=== PATIENT | male | born 1935 | race Caucasian/White ===

== ENCOUNTER 2021-12-26 19:24 | Inpatient (IN) | payer MEDICARE ==
[~2021-12-26] VITALS: Ht 172.7 cm; Wt 77.1 kg
--- NOTE | ~2021-12-26 | CON ---
[address] [address] CONSULTATION Name: YADY SUTHERLAND Room: [address] ADM IN M.R.#: [id number] Admission: 12/26/21 Attend Phys: Nicola Hill MD Discharge: Date of : 37 Report #: [id number] THIS REPORT FOR: cc: Dre Alegria Jesse J DO Khosla, Parveen K. MD ~ DATE OF CONSULTATION: 12/27/2021 HISTORY OF PRESENT ILLNESS: This is an 86-year-old male patient who was evaluated by me for the possibility of CVA. I reviewed this patient's record and talked to the patient's and patient himself. I also talked with Dr. Hill who is a hospitalist going to see this patient today. As I understand, this patient had a stroke in the past. That affected his speech as well as he had right-sided weakness. This weakness suddenly became worse yesterday. If I understand correctly from the patient, it came in suddenly. I reviewed the Emergency Room note, looks like the weakness was a slight that time, but to me the patient's weakness looked pretty significant, especially in the right upper extremity. This patient also has back pain, which is longstanding and he needs something to be done about it. Review of systems indicate a prior stroke, which left him with some weakness on the right side, but this one is definitely worse according to the patient. I reviewed other people's note and looks like this patient came to Emergency Room yesterday and a routine neurology consultation was today and the patient was seen today. He does not know why he had a stroke in the past, but he did say that he had a stent put in on the left carotid artery. So I assume that he had a significant stenosis at that time. He cannot tell me why the stent was put in and not the endarterectomy. He had a history of neck problem, back problem, hypoglycemia, hypertension. He used to be on aspirin and he tells me that he was told to stop aspirin. He has a list of multiple physicians. I do not know who asked him to stop the aspirin and why. It does not look like he was having any side effects. This was his relevant 14-point review of systems. PAST MEDICAL HISTORY: Positive for what looks like a stroke affecting his speech about 1 year ago when he was in [place]. FAMILY HISTORY: Negative for early age stroke. SOCIAL HISTORY: Smokes on special occasions. PHYSICAL EXAMINATION: The patient's examination indicate that the patient is alert and responsive. His speech looks okay to me. His memory is somewhat diminished, but I think that maybe his baseline. He does not appear to have any significant facial weakness, but he has a pretty profound weakness on the right upper extremity. I estimate his strength to be about 2/5. He does better with the right leg, but he has been limping on that. His right leg has a strength of [facility] [address] [place] [address] CONSULTATION Name: YADY SUTHERLAND Room: [address] IN .R.#: [id number] Admission: 12/26/21 Attend Phys: Nicola Hill MD Discharge: Date of : 37 Report #: [id number] about 3/5. He did reasonably well with position sense and other sensation on both sides. His reflexes appear to be diminished in generalized fashion. I could not look at the patient. The patient is a well-built individual. He does not have any dysmorphic features of eyes, ears and face. His blood pressure is 151/73, respirations 20, pulse is 76, temperature is 97.6. LABORATORY DATA: White count is 6.6. IMAGING: He had a CT scan of the head, CT scan of the C-spine and lumbar spine x-ray. He does have a stroke on the left side, but that can be old. IMPRESSION AND PLAN: The patient appeared to have a stroke on the left side, but his deficit appeared to be worse. I ordered an urgent MRI hoping that they will do it pretty fast, but they have not done it and I asked them to get it done as soon as possible, and if there is a need for make it make it stat. His symptoms started sometime yesterday evening. Therefore, he is way outside the window for any TPA. He does not have any carotid stenosis on ultrasound, which I got it done, but they have not done an MRI to see if there is any large vessel occlusion there, but even if it is, he is probably outside the window for that now, but I would like to get it done and I have called the nursing staff to get it done as soon as possible and call me with that. He is not on aspirin, for some reason he was taken out. I am going to give him a loading dose of Plavix as well as aspirin and then monitor him closely and check his MRI once it is available. More than 50 minutes of time was spent taking care of this patient today and majority was spent counseling and coordinating his care. Thank you very much for this referral. By: [id number] Mejia MD /nt
[2021-12-26 19:31] VITALS: BP 172/84
[2021-12-26 20:31] LABS: CALCIUM 9.2 mg/dL (8.5-10.1); CREATININE 1.1 mg/dL (0.6-1.3); POTASSIUM 3.9 mmol/L (3.5-5.1)
[2021-12-26 20:32] LABS: ABSOLUTE EOSINOPHILS 0.1 thou/uL (0.0-0.7); ABSOLUTE LYMPHOCYTES 1.5 thou/uL (0.8-5.3); ABSOLUTE MONOCYTES 0.6 thou/uL (0.0-1.2); ABSOLUTE NEUTROPHILS 4.4 thou/uL (1.6-8.1); BASOPHILS 0.7 %; EOSINOPHILS 1.9 %; HEMATOCRIT 45.6 % (42.0-52.0); HEMOGLOBIN 15.3 gm/dL (14.0-18.0); LYMPHOCYTES 22.3 %; MCH 34.2 pg (26.0-34.0); MCHC 33.5 g/dL (28.0-37.0); MCV 102.1 fL (80.0-100.0); MONOCYTES 8.9 %; MPV 6.7 fl. (7.2-11.1); NUCLEATED RBCS 0 /100WBC; PLATELET COUNT* 350 thou/uL (150-400); POLYS 66.2 %; RBC 4.47 mil/uL (4.50-6.00); WBC 6.6 thou/uL (4.0-11.0)
[2021-12-26 20:36] LABS: ALBUMIN 3.7 g/dL (3.4-5.0); TOTAL BILIRUBIN 0.3 mg/dL (<0.1-1.0); TOTAL PROTEIN 8.3 g/dL (6.4-8.2)
[2021-12-26 20:40] LABS: APTT 27.6 Seconds (25.0-31.3); PROTIME 10.6 Seconds (9.20-11.50)
[2021-12-26 21:35] LABS: URINE BILIRUBIN NEGATIVE (Negative); URINE BLOOD NEGATIVE (Negative); URINE CLARITY CLEAR; URINE COLOR YELLOW; URINE GLUCOSE-RANDOM NEGATIVE (Negative); URINE KETONES NEGATIVE (Negative); URINE LEUKOCYTES-REFLEX NEGATIVE (Negative); URINE NITRITE-REFLEX NEGATIVE (Negative); URINE PROTEIN NEGATIVE (Negative); URINE UROBILINOGEN 0.2 E.U./dl (0.2-1.0)
[2021-12-26 23:10] VITALS: BP 132/87
[2021-12-26 23:50] VITALS: BP 167/93
[2021-12-27 04:00] VITALS: BP 144/77
[2021-12-27 08:00] VITALS: BP 159/80
[2021-12-27] MEDS ORDERED: DEPO-TESTO200 MG/1 M IM (10:05)
[2021-12-27] MEDS ORDERED: CRESTOR40 MG PO (10:06)
[2021-12-27] MEDS ORDERED: VIAGRA25 MG PO (10:06)
[2021-12-27] MEDS ORDERED: COZAAR 25 MG TA25 M1 PO (10:07)
[2021-12-27] MEDS ORDERED: LEVOTHYROXINE88 MC1 PO (10:07)
--- NOTE | 2021-12-27 10:57 | EKG ---
[place] [address] ELECTROCARDIOGRAM REPORT Name: YADY SUTHERLAND Room: [address] M.R.#: [id number] Admission: 12/26/21 Attend Phys: Nicola Hill, Discharge: Date of : 37 Date of Service: 12/26/211926 Report #: [id number] THIS REPORT FOR: //name// [facility] ED Test Date: 2021-12-26 Test Time: 19:27:15 Pat Name: YADY SUTHERLAND Department: Room: [facility] Gender: M Medicaid Nurse: KELVIN : 1935 Requested By: Mariam Frye Order Number: [id number] MD: Sarmad Rea Measurements Intervals Lena Rate: 87 P: 34 NC: 183 QRS: -23 QRSD: 102 T: 45 QT: 372 QTc: 448 Interpretive Statements Sinus rhythm Atrial premature complex Probable left atrial enlargement Abnormal R-wave progression, early transition Left ventricular hypertrophy Baseline wander in lead(s) I,III,aVL,aVF,V2 No previous ECG available for comparison Electronically Signed On 12-27-2021 10:57:37 MANAGER FIELD by Sarmad Rea [email or web address] <ELECTRONICALLY SIGNED> By: Sarmad Rea MD, FAC 12/27/21 1057 26 26 Sarmad Rea MD, [facility] /EPI
[2021-12-27 14:20] VITALS: BP 151/73
--- NOTE | 2021-12-27 17:06 | 2DMMODE ---
[place] [address] 2 D/M-MODE ECHOCARDIOGRAM Name: YADY SUTHERLAND Room: [address] IN .R.#: [id number] Admission: 12/26/21 Attend Phys: Nicola Hill, Discharge: Date of : 37 Date of Service: 12/27/21 1706 Report #: [id number] THIS REPORT FOR: cc: Dre Alegria Jesse J DO Liston, Michael J. MD [facility] ~ APPROVED REPORT Study performed: 12/27/2021 15:35:56 EXAM: Comprehensive 2D, Doppler, and color-flow Echocardiogram Patient Location: In-Patient Room #: [facility] Status: routine BSA: 1.90 HR: 75 bpm BP: 159/80 mmHg Rhythm: NSR Other Information Technically limited study due to poor endocardial definition, inability to position patient. Indications CVA/TIA Echo Enhancing Agent Indication: Endocardial border delineation, RULE OUT SHUNT Agent(s) / Amount(s) Used: Optison 3 cc Agitated Saline 10 cc 2D Dimensions IVSd: 12.26 (7-11mm) LVOT Diam: 19.81 (18-24mm) LVDd: 40.18 mm PWd: 12.34 (7-11mm) Ascending Ao: 31.82 (22-36mm) LVDs: 29.47 (25-40mm) Aortic Root: 32.08 mm Volumes Left Atrial Volume (Systole) LA ESV Index: 30.30 mL/m2 Aortic Valve AoV Peak Eric.: 1.52 m/s [address] [address] 2 D/M-MODE ECHOCARDIOGRAM Name: YADY SUTHERLAND Room: [address] IN [facility].#: [id number] Admission: 12/26/21 Attend Phys: Nicola Hill, Discharge: Date of : 37 Date of Service: 12/27/21 1706 Report #: [id number] Peak Gr.: 9.19 mmHg LVOT Max P.61 mmHg AO Mean Gr.: 4.83 mmHg LVOT Mean P.69 mmHg LVOT Max V: 1.55 m/s AO V2 VTI: 29.28 cm LVOT Mean V: 0.99 m/s DINESH (VTI): 3.39 cm2 LVOT V1 VTI: 32.18 cm Mitral Valve MV Mean Gr.: 4.10 mmHg E/A Ratio: 0.65 MV Decel. Time: 283.55 ms MV E Max Eric.: 0.91 m/s MV PHT: 82.23 ms MVA (PHT): 2.68 cm2 TDI E/Lateral E': 15.17 E/Medial E': 15.17 Medial E' Eric.: 0.06 m/s Lateral E' Eric.: 0.06 m/s Left Ventricle The left ventricle is normal size. There is normal LV segmental wall motion. Mild concentric left ventricular hypertrophy. Left ventricular systolic function is normal. LVEF is 65-70%. Grade I - abnormal relaxation pattern. Right Ventricle The right ventricle is normal size. The right ventricular systolic function is normal. Atria Left atrium is mildly dilated. Bubble study technically limited due to suboptimal visualization. No obvious shunt noted. The right atrium size is normal. Aortic Valve Mild aortic valve sclerosis. No aortic regurgitation is present. There is no aortic valvular stenosis. Mitral Valve There is mitral annular calcification. There is no mitral valve regurgitation noted. No evidence of mitral valve stenosis. Tricuspid Valve The tricuspid valve is normal in structure. There is no tricuspid valve regurgitation noted[place] [address] 2 D/M-MODE ECHOCARDIOGRAM Name: YADY SUTHERLAND Room: [address] IN [facility]#: [id number] Admission: 12/26/21 Attend Phys: Nicola Hill, Discharge: Date of : 37 Date of Service: 12/27/21 1706 Report #: [id number] The pulmonary valve is normal in structure. There is no pulmonic valvular regurgitation. Great Vessels The aortic root is normal in size. IVC is normal in size and collapses >50% with inspiration. Pericardium There is no pericardial effusion. <Conclusion> The left ventricle is normal size. Mild concentric left ventricular hypertrophy. Left ventricular systolic function is normal. LVEF is 65-70%. Grade I - abnormal relaxation pattern. Left atrium is mildly dilated. Mild aortic valve sclerosis. There is mitral annular calcification. IVC is normal in size and collapses >50% with inspiration. Bubble study technically limited due to suboptimal visualization. No obvious shunt noted. Consider KENYA if clinically indicated. <ELECTRONICALLY SIGNED> By: Chirag Cheng MD, FACC 12/27/211705 05 05 Chirag Cheng MD, FACC /INF
[2021-12-27 19:29] VITALS: BP 127/67
[2021-12-27 20:20] VITALS: BP 141/74
[2021-12-28] VITALS (8 sets, daily range): BP systolic 102–161; BP diastolic 49–83
[2021-12-28 04:57] LABS: CALCIUM 8.1 mg/dL (8.5-10.1)
[2021-12-28 06:56] LABS: ABSOLUTE EOSINOPHILS 0.2 thou/uL (0.0-0.7); ABSOLUTE MONOCYTES 0.5 thou/uL (0.0-1.2); ABSOLUTE NEUTROPHILS 3.9 thou/uL (1.6-8.1); BASOPHILS 0.6 %; EOSINOPHILS 2.8 %; HEMATOCRIT 41.1 % (42.0-52.0); HEMOGLOBIN 13.7 gm/dL (14.0-18.0); LYMPHOCYTES 17.3 %; MCH 34.2 pg (26.0-34.0); MCHC 33.5 g/dL (28.0-37.0); MCV 102.1 fL (80.0-100.0); MONOCYTES 9.3 %; MPV 6.7 fl. (7.2-11.1); NUCLEATED RBCS 0 /100WBC; RBC 4.02 mil/uL (4.50-6.00); RDW-CV 14.1 % (10.5-14.5); WBC 5.5 thou/uL (4.0-11.0)
[2021-12-28 07:13] LABS: PLATELET COUNT* 270 thou/uL (150-400)
[2021-12-29 02:10] VITALS: BP 137/76
[2021-12-29 04:46] LABS: ABSOLUTE EOSINOPHILS 0.1 thou/uL (0.0-0.7); ABSOLUTE MONOCYTES 0.6 thou/uL (0.0-1.2); ABSOLUTE NEUTROPHILS 4.2 thou/uL (1.6-8.1); BASOPHILS 0.6 %; HEMATOCRIT 38.2 % (42.0-52.0); HEMOGLOBIN 12.6 gm/dL (14.0-18.0); LYMPHOCYTES 16.3 %; MONOCYTES 9.9 %; MPV 6.4 fl. (7.2-11.1); NUCLEATED RBCS 0 /100WBC; PLATELET COUNT* 252 thou/uL (150-400); POLYS 71.2 %; RBC 3.71 mil/uL (4.50-6.00); RDW-CV 14.5 % (10.5-14.5); WBC 5.8 thou/uL (4.0-11.0)
[2021-12-29 05:04] LABS: ALBUMIN 2.4 g/dL (3.4-5.0); CALCIUM 7.6 mg/dL (8.5-10.1); POTASSIUM 3.7 mmol/L (3.5-5.1); TOTAL BILIRUBIN 0.3 mg/dL (<0.1-1.0); TOTAL PROTEIN 5.8 g/dL (6.4-8.2)
[2021-12-29 06:09] VITALS: BP 146/71
[2021-12-29 07:53] VITALS: BP 151/80
[2021-12-29 12:00] VITALS: BP 147/63
[2021-12-29 16:00] VITALS: BP 167/76
[2021-12-29 20:00] VITALS: BP 141/77
[2021-12-30] VITALS (8 sets, daily range): BP systolic 135–169; BP diastolic 59–85
[2021-12-30 04:24] LABS: CHOLESTEROL 104 mg/dL (<200); HDL CHOLESTEROL 43 mg/dL (>40); LDL CHOLESTEROL 45 mg/dL (<100); TC:HDL 2.4 Ratio (Not establshd); TRIGLYCERIDE 81 mg/dL (<150); VLDL 16 mg/dL (<40)
[2021-12-30 04:25] LABS: SERUM ASSESSMENT CLEAR
[2021-12-30] MEDS ORDERED: ASA81BEC PO (06:40)
[2021-12-30] MEDS ORDERED: PLAVIX 75 MG TA75 M1 PO (06:40)
--- NOTE | 2021-12-31 14:18 | CON ---
[address] [address] CONSULTATION Name: YADY SUTHERLAND Room: [address] IN M.R.#: [id number] Admission: 12/26/21 Attend Phys: Nicola Hill MD Discharge: 12/30/21 Date of : 37 Report #: [id number] THIS REPORT FOR: cc: Dre Alegria Jesse J DO Blick,Sarmad Soriano MD [facility] ~ DATE OF CONSULTATION: 12/30/2021 HISTORY OF PRESENT ILLNESS: The patient is an 86-year-old white male who I was asked to see in the hospital today after he had a stroke. The history is obtained from the current chart. Unfortunately, there are no old records. The patient used to live in [place] till about 3 months ago when he moved to the [facility]. He has no previous history of heart disease. He does note about a year ago, he was having weakness in his right arm and right leg. He was felt to have a stroke. He subsequently had a stent placed in his left carotid artery. He has done well since that time, although he uses a cane to ambulate. He has been on Plavix. Several days ago, the patient was at home when he felt weakness of his right arm and right leg. He was brought here to [place] by ambulance. He denied any blurred vision, slurred speech. He was seen by Neurology and felt to have had a stroke. He denies a history of chest pain, shortness of breath, palpitations. He has a long history of dizziness, but has had no syncope. He has had no edema. He apparently had a stress test in the past that showed no coronary artery disease. PAST MEDICAL HISTORY: He has had previous knee surgery, elbow surgery following fracture, hypertension, hyperlipidemia. CURRENT MEDICATIONS: Include aspirin, Plavix, losartan, Crestor. ALLERGIES: He has no known drug allergies. FAMILY HISTORY: His father had heart attack. SOCIAL HISTORY: He is . 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 No smoking. Rarely drinks alcohol. REVIEW OF SYSTEMS: No history of asthma, liver disease, kidney disease. He has a skin cancer removed in the past. No chronic skin condition. No psychiatric illness. PHYSICAL EXAMINATION: GENERAL: Revealed an elderly male, lying in bed, appeared in no distress. VITAL SIGNS: He had a blood pressure of 140/70, pulse 70, he was afebrile. HEENT: He was anicteric. Conjunctivae pink. Mucous membranes moist. NECK: Veins do not distended. Bilateral carotid bruits [place] [address] CONSULTATION Name: YADY SUTHERLAND Room: [address] IN M.R.#: [id number] Admission: 12/26/21 Attend Phys: Nicola Hill MD Discharge: 12/30/21 Date of : 37 Report #: [id number] supple. CHEST: Clear to auscultation. HEART: Regular rate and a grade 4 systolic ejection murmur at left sternal border. ABDOMEN: Soft. EXTREMITIES: Had no pitting edema. SKIN: Warm and dry. NEUROLOGIC: Nonfocal. LABORATORY DATA: His ECG on admission showed a sinus rhythm with early transition, left ventricular hypertrophy, PAC. His workup, echocardiogram showed normal left ventricular function, aortic sclerosis, no evidence of a shunt. He had a carotid Doppler study performed that showed no significant stenosis, no restenosis of the stent. He had MRI of the brain that showed previous lacunar infarction as well as a new acute infarction. His lab work, potassium 3.7, creatinine 1.0, albumin 2.4. Liver function studies were normal. Cholesterol 104, triglyceride 81, HDL 43, LDL 45. TSH 3.8, hematocrit 38.2. His COVID antigen stat test was negative. Urinalysis negative for protein, B12 1990. IMPRESSION AND RECOMMENDATIONS: 1. Previous stroke. Now has a new stroke. No restenosis of the carotid stent. The patient has been on aspirin and Plavix. I would recommend loop recorder to rule out any arrhythmia. 2. Hypertension. The patient is on ARB. 3. Hyperlipidemia. The patient is on a statin drug. 4. Previous carotid stent. I would continue aspirin. <ELECTRONICALLY SIGNED> By: Sarmad Rea MD, [facility] 12/31/21 1418 0950 [id number] Rea MD, FAC /nt
--- NOTE | 2021-12-31 14:18 | CARD ---
[address] [address] CARDIAC CATH REPORT Name: YADY SUTHERLAND Room: [address] IN M.R.#: [id number] Admission: 12/26/21 Attend Phys: Nicola Hill MD Discharge: 12/30/21 Date of : 37 Report #: [id number] THIS REPORT FOR: cc: Dre Alegria Jesse J DO Blick,Sarmad Soriano MD [facility] ~ DATE OF SERVICE: 12/30/2021 TYPE OF PROCEDURE: Insertion of an implantable monitoring tech. INDICATIONS: Implantation of a monitoring tech was requested in this patient with history of stroke. DESCRIPTION OF PROCEDURE: The patient was brought to the cardiac catheterization holding area. The anterior chest area was cleaned with ChloraPrep and sterilely draped in the usual fashion. The area was anesthetized with 1% lidocaine. Incision was made using a blade. [employer] LINQ implantable monitoring tech was then inserted through the incision using a trocar and syringe after applying local anesthetic with 1% lidocaine. After removing the trocar, Dermabond was applied over the incision. The patient tolerated the procedure well and was transferred back to her monitored bed in stable condition. IMPRESSION: Successful insertion of an implantable monitoring tech with the R waves measured greater than 0.4 milliamps. <ELECTRONICALLY SIGNED> By: Sarmad Rea MD, [facility] 12/31/21 1418 1436 [id number] Rea MD, FACC /nt
[2021-12-31 17:06] LABS: ANA INTERPRETATION Negative (())
== END 2021-12-30 18:12 | DRG 41 ==
LOC: M.ERS 19:24 → M.TBA-ER 22:10 → M.2W 22:10
PROVIDERS: Personal Emergency Response Attendant; Psychiatry & Neurology Neuromuscular Medicine; ADMIT Internal Medicine; ATTEND Internal Medicine
PROC: 0JH602Z Insertion of Monitoring Device into Chest Subcutaneous Tissue and Fascia, Open Approach (ICD-10-PCS; principal; 2021-12-30)
DX: I63.81 Other cerebral infarction due to occlusion or stenosis of small artery (principal); G81.91 Hemiplegia, unspecified affecting right dominant side; E44.1 Mild protein-calorie malnutrition; M80.08XA Age-related osteoporosis with current pathological fracture, vertebra(e), initial encounter for fracture; K92.2 Gastrointestinal hemorrhage, unspecified; Z20.822 Contact with and (suspected) exposure to COVID-19; I10 Essential (primary) hypertension; E03.9 Hypothyroidism, unspecified; E78.5 Hyperlipidemia, unspecified; M19.90 Unspecified osteoarthritis, unspecified site; I95.9 Hypotension, unspecified; Z82.49 Family history of ischemic heart disease and other diseases of the circulatory system; Z79.899 Other long term (current) drug therapy; Z79.82 Long term (current) use of aspirin; Z68.25 Body mass index [BMI] 25.0-25.9, adult

== ENCOUNTER 2021-12-30 18:15 | Inpatient (IN) | payer MEDICARE ==
[~2021-12-30] VITALS: Ht 170.2 cm; Wt 78.4 kg
[~2021-12-30 18:15] MED LIST: ASA81BEC PO; COZAAR 25 MG TA25 M1 PO; CRESTOR40 MG PO; DEPO-TESTO200 MG/1 M IM; LEVOTHYROXINE88 MC1 PO; PLAVIX 75 MG TA75 M1 PO; VIAGRA25 MG PO
[2021-12-30 20:00] VITALS: BP 122/74
[2021-12-31 05:29] LABS: HEMATOCRIT 38.2 % (42.0-52.0); HEMOGLOBIN 12.9 gm/dL (14.0-18.0); MCH 34.3 pg (26.0-34.0); MCHC 33.9 g/dL (28.0-37.0); MCV 101.3 fL (80.0-100.0); MPV 6.5 fl. (7.2-11.1); RBC 3.78 mil/uL (4.50-6.00); RDW-CV 14.4 % (10.5-14.5); WBC 5.9 thou/uL (4.0-11.0)
[2021-12-31 05:52] LABS: ALBUMIN 2.6 g/dL (3.4-5.0); CALCIUM 7.8 mg/dL (8.5-10.1); CREATININE 0.9 mg/dL (0.6-1.3); POTASSIUM 3.7 mmol/L (3.5-5.1); TOTAL BILIRUBIN 0.4 mg/dL (<0.1-1.0); TOTAL PROTEIN 6.1 g/dL (6.4-8.2)
[2021-12-31 07:40] VITALS: BP 171/73
[2021-12-31 20:17] VITALS: BP 155/82
[2022-01-01 05:48] LABS: HEMATOCRIT 40.3 % (42.0-52.0); HEMOGLOBIN 13.5 gm/dL (14.0-18.0); MCH 33.9 pg (26.0-34.0); MCHC 33.6 g/dL (28.0-37.0); MCV 100.9 fL (80.0-100.0); MPV 6.6 fl. (7.2-11.1); RBC 3.99 mil/uL (4.50-6.00); WBC 6.6 thou/uL (4.0-11.0)
[2022-01-01 06:13] LABS: CALCIUM 8.8 mg/dL (8.5-10.1); CREATININE 0.9 mg/dL (0.6-1.3); POTASSIUM 3.8 mmol/L (3.5-5.1)
[2022-01-01 08:03] VITALS: BP 155/79
[2022-01-01 20:26] VITALS: BP 142/70
[2022-01-02 08:00] VITALS: BP 138/75
[2022-01-02 20:33] VITALS: BP 128/61
[2022-01-03 08:00] VITALS: BP 145/76
[2022-01-03 08:21] VITALS: BP 182/102
[2022-01-03 20:15] VITALS: BP 126/64
[2022-01-04 09:00] VITALS: BP 160/76
[2022-01-04 20:15] VITALS: BP 134/78
[2022-01-05 08:30] VITALS: BP 149/81
[2022-01-05 19:51] VITALS: BP 135/67
[2022-01-06 08:00] VITALS: BP 140/77
[2022-01-06 19:00] VITALS: BP 166/79
== END 2022-01-07 | disposition still patient (30) | DRG 56 ==
LOC: M.REH 18:15
PROVIDERS: ADMIT Physical Medicine & Rehabilitation; ATTEND Physical Medicine & Rehabilitation
DX: I69.351 Hemiplegia and hemiparesis following cerebral infarction affecting right dominant side (principal); I63.9 Cerebral infarction, unspecified; I10 Essential (primary) hypertension; M19.90 Unspecified osteoarthritis, unspecified site; R26.9 Unspecified abnormalities of gait and mobility; F41.9 Anxiety disorder, unspecified; Z74.09 Other reduced mobility; E03.9 Hypothyroidism, unspecified; G31.84 Mild cognitive impairment of uncertain or unknown etiology; I65.29 Occlusion and stenosis of unspecified carotid artery; Z79.899 Other long term (current) drug therapy; Z79.82 Long term (current) use of aspirin; Z79.02 Long term (current) use of antithrombotics/antiplatelets; Z95.820 Peripheral vascular angioplasty status with implants and grafts